=== PATIENT | female | born 1965 | race Caucasian/White ===

== ENCOUNTER → 2019-12-02 | Outpatient (CLI) | payer OTHER ==
[~2019-12-02] MED LIST: LEVO125T5 PO; LIOT5TAB4 PO
--- NOTE | 2019-12-02 11:11 | PDOC2 ---
INITIAL PAIN CONSULT DATE OF SERVICE: DOS: DATE: 12/02/19 TIME: 11:04 CHIEF COMPLAINT: Chief Complaint: Low back and bilateral lower extremity pain right greater than left HISTORY OF PRESENT ILLNESS: This is a 54-year-old female presents history of pain low back bilateral lower extremities right greater than left for about 1 year. Patient reports no specific injury or accident that she is aware of the pain is been getting worse over the past year in the low back and bilateral lower extremities. Patient which is sharp and throbbing shooting with numbness and radiating pain in the lower extremities to the feet posterior gluteus posterior thighs posterior calf and into the foot and ankle especially on the right side but present bilaterally. Patient points radiating aching and cramping in the low back as well patient reports is worse with walking standing changing positions, better with sitting but does awaken her from sleep several times at night patient reports it does not affect her bowel bladder control significantly does not affect ability to walk for most times but does cause fatigability in bilateral lower extremities specially on the right side with ambulating more than about 10 minutes. Patient tried chiropractic treatment which helped for about a month or so but to come right back start ibuprofen as well as naproxen both of which decrease the pain by about 20 to 25%. Patient partial disability of 0-10 10 in the worst is a 4 with family home responsibilities and occupation 6 with recreation to a social activity and social behavior and self-care activities. Patient have a MRI scan lumbar spine showing degenerative changes specially at the L5-S1 level with L5-S1 neuroforaminal stenosis greater on the right than the left. Reports no overt loss of motor function but significant fatigability with ambulation although she not use any assistive devices to ambulate. PAST MEDICAL HISTORY: PMH: Cigarette smoking, dizziness, otherwise patient has been in fairly good health. PREVIOUS SURGERIES: Past Surgical Hx: Thyroidectomy 2019, left shoulder surgery 2013, 1988, vein stripping 1991. CURRENT MEDICATIONS: Current Meds: Active Scripts Medications Dose Route/Sig Max Daily Dose Days Date Category Liothyronine Sodium 5 Mcg Tablet 10 Mcg PO BID 12/02/19 Reported Levothyroxine Sodium 125 Mcg Tablet 1 Tab PO DAILY 12/02/19 Reported ALLERGIES; Allergies: Coded Allergies: Sulfa (Sulfonamide Antibiotics) (Verified Allergy, Severe, 12/02/19) "severe" joint pain FAMILY HISTORY: Family Hx: Significant for breast cancer, multiple myeloma, hypotension, myofibrosis, glaucoma. SOCIAL HISTORY: Social Hx: Patient does not drink alcohol does not smoke any illegal illicit or recreational drugs smokes cigarettes about 1 pack a day for the past 30 years is lives locally in [facility] and has 1 child living at home. Patient works as a realtor REVIEW OF SYSTEMS: ROS: Patient review of systems a positive those items mentioned in his present illness all systems reviewed otherwise negative complete formal document on patient's chart. PHYSICAL EXAM: VS: Blood pressure 110/78 pulse 78 respirations 18 temperature 97.7 F 6'1" weight is 2 three 2 pound PE: PHYSICAL EXAMINATION: GENERAL: The patient is awake, alert, oriented, appropriate, very pleasant demeanor HEENT: Shows normocephalic, atraumatic. Extraocular movements are intact and symmetrical. Oral cavity: Mucous membranes moist and pink. Dentition is intact. NECK: Shows anterior throat supple without palpable lymphadenopathy noted. Swallow reflex symmetrical. CHEST: Shows normal on inspection. Breath sounds are clear bilaterally, no rales rhonchi or wheezes auscultated. HEART: Shows S1, S2 clear. No murmurs auscultated. ABDOMEN: Soft, nontender, nondistended. No palpable organomegaly is noted. No rebound or guarding demonstrated. BACK: Shows spine grossly in the midline. Normal-appearing cervical lordotic curvature. There is slightly increased thoracic kyphosis, some minor flattening of the lumbar lordotic curvature. Lumbar paraspinous muscles show symmetrical on inspection, on palpation shows some moderate tenderness diffusely throughout the upper, middle and lower distribution of the paraspinous muscles bilaterally but without specific trigger points, without radiation of pain. The patient has good rotational motion of the lumbar spine, both laterally as well as extension and flexion without significant difficulty. No tenderness over the spinous processes, sacrum or sacroiliac regions. EXTREMITIES: Lower extremities show deep tendon reflexes 2+ in the patellar and tendo calcaneus tendons. Motor exam is 4 on a scale of 5 with right dorsiflexi on, extension, quadriceps and hamstring flexion and 5/5 on the left. Peripheral pulses are 1+ posterior tibial. No peripheral edema is noted bilaterally. Lower extremities are warm and dry to touch, equal in color and appearance. Straight leg raise noted to be positive on the right about 45 degrees, left side is negative. Gaenslen's and Jose Carlos's maneuvers are negative as well. The patient is able to stand, stand on her toes without significant difficulty or loss of balance, walks with a normal-appearing gait not using any assistive devices to ambulate. SKIN: Shows warm and dry, good turgor. No edema. No sores, rashes or bruising throughout. IMPRESSION: Impression: This is a 54-year-old female with approximate 1 year history increasing pain low back bilateral lower extremities right greater than left in a radicular fashion. MRI scan lumbar spine as noted Cigarette smoking Plan: Options were discussed with the patient including conservative management physical therapies interventional techniques and she like to pursue interventional techniques. We discussed a lumbar epidural steroid injection using description as well as anatomical model to describe the procedure patient will await preauthorization with her insurance provider with clinical radiculopathy in bilateral lower extremities right greater than left and L4-5 dermatomal distribution and we will plan on translaminar approach L4-5 lumbar epidural steroid injection upon approval. In the meantime patient will continue with stretching strength exercises walking as tolerated. CHEMA WILLIAMSON MD Dec 02, 2019 11:11
== END | disposition home or self-care (01) ==
LOC: PNCL 10:26
PROVIDERS: ATTEND Anesthesiology
DX: M48.07 Spinal stenosis, lumbosacral region (principal); M54.16 Radiculopathy, lumbar region; Z87.891 Personal history of nicotine dependence; Z98.890 Other specified postprocedural states; Z88.2 Allergy status to sulfonamides; Z82.49 Family history of ischemic heart disease and other diseases of the circulatory system; Z80.3 Family history of malignant neoplasm of breast
CPT/HCPCS: G0463

== ENCOUNTER → 2019-12-10 | Outpatient (CLI) | payer OTHER ==
[~2019-12-10] MED LIST changes: +ERGO500027 PO
== END | disposition home or self-care (01) ==
LOC: LAB 11:11
PROVIDERS: ATTEND Orthopaedic Surgery
DX: Z01.818 Encounter for other preprocedural examination (principal); Z11.59 Encounter for screening for other viral diseases; M19.011 Primary osteoarthritis, right shoulder; M75.121 Complete rotator cuff tear or rupture of right shoulder, not specified as traumatic
CPT/HCPCS: U0003-CS

== ENCOUNTER → 2019-12-10 | Outpatient (CLI) | payer OTHER ==
[~2019-12-10] MED LIST changes: -ERGO500027 PO; +IOHEXOL 180 MG/ML 10 ML VIAL. ONE; +methylPREDNISolone ACETATE 40 MG/ML VIAL. ONE; +methylPREDNISolone ACETATE 80 MG/ML VIAL. ONE
--- NOTE | 2019-12-10 10:47 | PDOC ---
Progress Note - Pain Clinic Date of Service: DOS: DATE: 12/10/19 TIME: 10:44 Diagnosis: Dx: Lumbar radiculopathy with lumbar degenerative disc disease History or Present Illness: HPI: 54-year-old female returns follow-up status post initial evaluation preauthorization for lumbar epidural steroid injection. Patient is obtained that now would like to proceed, complains still of the low back and the right leg and left lower extremity pain rated a 2 on a scale of 10 is worse over the past week 2 on average to displaces it to today. Patient was aching and tight tingling and radiating the low back and right leg posterior gluteus posterior lateral thigh lateral anterior thigh and medial thigh on the right side greater than left. Patient reports no new motor or sensory deficits no new bowel or bladder incontinence or other complaints. Patient which is waking her from sleep about 5 to 6 hours better with sitting or laying down. Physical Exam: VS: Blood pressure is 113/75 pulse 67 respirations 18 temperature 98.1 F weight is 237 pounds PE: PHYSICAL EXAMINATION: GENERAL: The patient is awake, alert, oriented, appropriate, very pleasant demeanor HEENT: Shows normocephalic, atraumatic. Extraocular movements are intact and symmetrical. NECK: Shows anterior throat supple without palpable lymphadenopathy noted. Swallow reflex symmetrical. CHEST: Shows normal on inspection. Breath sounds are clear bilaterally, no rales rhonchi or wheezes auscultated. HEART: Shows S1, S2 clear. No murmurs auscultated. ABDOMEN: Soft, nontender, nondistended. No palpable organomegaly is noted. No rebound or guarding demonstrated. BACK: Shows spine grossly in the midline. Normal-appearing cervical lordotic curvature. There is slightly increased thoracic kyphosis, some minor flattening of the lumbar lordotic curvature. Lumbar paraspinous muscles show symmetrical on inspection, on palpation shows some moderate tenderness diffusely throughout the upper, middle and lower distribution of the paraspinous muscles bilaterally without trigger points, without radiation of pain. The patient has good rotational motion of the lumbar spine, both laterally as well as extension and flexion without significant difficulty. No tenderness over the spinous proces ses, sacrum or sacroiliac regions. EXTREMITIES: Lower extremities show deep tendon reflexes 2+ in the patellar and tendo calcaneus tendons. Motor exam is 4 on a scale of 5 with right dorsiflexion, extension, quadriceps and hamstring flexion and 5/5 on the left. Peripheral pulses are [] posterior tibial. [] peripheral edema is noted bilaterally. Lower extremities are warm and dry to touch, equal in color and appearance. SKIN: Shows warm and dry, good turgor. No edema. No sores, rashes or bruising throughout. Procedure: Procedure: Options are discussed with the patient. Patient will chart was use her current medication regimen updated current review of systems updated today as well. We will proceed with a lumbar epidural to injection today with fluoroscopic guidance. Risks are discussed including but not limited to bleeding infection possibility of epidural hematoma subsequent neurological compromise dural puncture headache spinal cord and or nerve damage side effects of steroid medication and poor results chronic pain control. Patient understands wished to proceed patient return to clinic in approximately 2 weeks for follow-up with counselors return appointment at the level and side effects to be aware of. Medication Injected: Med Injected: Procedure is lumbar epidural steroid injection under local anesthetic using sterile prep and drape at the L4-5 level using C-arm fluoroscopic guidance in both AP and lateral views medications injected is 120mg Depo-Medrol + 10 mL preservative-free normal saline and 2 mL Isovue for contrast- condition at discharge is stable patient tolerated procedure well had no complications. Condition at Discharge: Condition at Discharge: Condition at discharge is stable patient tolerated procedure well had no complications. CHEMA WILLIAMSON MD Dec 10, 2019 10:47
== END | disposition home or self-care (01) ==
LOC: PNCL 09:59
PROVIDERS: ATTEND Anesthesiology
DX: M51.16 Intervertebral disc disorders with radiculopathy, lumbar region (principal); Z88.2 Allergy status to sulfonamides; Z79.899 Other long term (current) drug therapy; Z80.3 Family history of malignant neoplasm of breast
CPT/HCPCS: 62323; J1030; J1040; Q9965

== ENCOUNTER 2019-12-15 06:11 | Day surgery (SDC) | payer OTHER ==
[~2019-12-15] VITALS: Ht 185.4 cm; Wt 101.2 kg
[~2019-12-15 06:11] MED LIST changes: +ERGO500027 PO; -IOHEXOL 180 MG/ML 10 ML VIAL. ONE; -methylPREDNISolone ACETATE 40 MG/ML VIAL. ONE; -methylPREDNISolone ACETATE 80 MG/ML VIAL. ONE
[2019-12-15] MEDS ORDERED: EPINEPHrine VIAL 30 MG/30 ML VIAL ONE (06:41)
[2019-12-15] MEDS ORDERED: LIDOCAINE 1% PF 2 ML VIAL. ONE (06:55)
[2019-12-15] MEDS ORDERED: BUPIVACAINE MPF 0.5% 30 ML VIAL. ONE (06:55)
[2019-12-15] MEDS ORDERED: BUPIVACAINE-EPI 0.5%-1:200000 MPF 30 ML VIAL. ONE (06:55)
[2019-12-15] MEDS ORDERED: ONDANSETRON PF 4 MG/2 ML VIAL. IV PRN (07:00)
[2019-12-15] MEDS ORDERED: HYDROmorphone 2 MG/ML VIAL IV PRN (07:00)
[2019-12-15] MEDS ORDERED: IV RINGERS,LACTATED 1000ML 1,000 ML IV SCH (07:00)
[2019-12-15] MEDS ORDERED: MORPHINE SULFATE 2 MG/ML VIAL. IV PRN (07:00)
[2019-12-15] MEDS ORDERED: PROCHLORPERAZINE 10 MG/2 ML VIAL. IV PRN (07:00)
[2019-12-15] MEDS ORDERED: MIDAZOLAM HCL/PF 2 MG/2 ML VIAL. ONE (07:02)
[2019-12-15] MEDS ORDERED: fentaNYL PF VIAL 100 MCG/2 ML VIAL ONE (07:02)
[2019-12-15] MEDS ORDERED: LIDOCAINE 2% PF 5 ML VIAL. ONE (07:06)
[2019-12-15] MEDS ORDERED: PROPOFOL 10 MG/ML (20ML) VIAL. IV ONE (07:06)
[2019-12-15] MEDS ORDERED: DEXAMETHASONE SOD PHOS 4 MG/ML VIAL ONE (07:06)
[2019-12-15] MEDS ORDERED: ONDANSETRON PF 4 MG/2 ML VIAL. ONE (07:06)
[2019-12-15] MEDS ORDERED: ROCURONIUM 50 MG/5 ML VIAL. ONE (07:07)
[2019-12-15] MEDS ORDERED: SUCCINYLCHOLINE 200 MG/10 ML VIAL. ONE (07:07)
[2019-12-15] MEDS ORDERED: ePHEDrine PF IN SALINE 50 MG/10 ML SYRINGE. IV ONE (08:10)
[2019-12-15] MEDS ORDERED: OXYC1TAB19 PO (08:11)
[2019-12-15] MEDS ORDERED: oxyCODONE/APAP 7.5/325 1 TAB TABLET PO ONE (08:15)
[2019-12-15] MEDS ORDERED: NEOSTIGMINE METHYLSULFATE 5 MG/5 ML SYRINGE. ONE (08:45)
[2019-12-15] MEDS ORDERED: SEVOFLURANE 61 TO 120 MINUTES. IH ONE (08:46)
[2019-12-15] MEDS ORDERED: GLYCOPYRROLATE 1 MG/5 ML VIAL. ONE (08:46)
[2019-12-15] MEDS ORDERED: ceFAZolin 2GM PREMIX 2 GM/50 ML BAG IV ONE (09:00)
[2019-12-15] MEDS ORDERED: SEVOFLURANE > 120 MINUTES. IH ONE (10:02)
--- NOTE | 2019-12-15 10:11 | DISCH ---
DISCHARGE INSTRUCTIONS Condition on Discharge Condition on Discharge: Stable Activity After Discharge Activity Instructions for Disc: Other, see below (May perform fine motor ac tivity with right elbow at side, wear immobilizer for sleeping) Exercise Instruction after Dis: Exercise per therapy (Passive motion and pendulum exercises only, do not actively lift arm away from the side) Weight Bearing Status after Di: Non weight bearing Diet after Discharge Diet after Discharge: Regular Wound Incision Care Wound/Incision Care: Change dressing (Remove dressing after 2 days may then shower report any redness or drainage) Community/Resources/Services Services at Discharge: PT EVALUATE & TREAT (Prescription provided) Contacting the after DC Call your doctor for: Concerns you may have Follow-Up Follow up with: Dr. Garcia 1 week MARIAM GARCIA MD Dec 15, 2019 10:11
--- NOTE | 2019-12-15 10:18 | PDOC4 ---
Operative Note Operative Note Date of surgery: 12/15/2019 Preoperative diagnosis: Right shoulder rotator cuff tear, acromioclavicular joint degenerative joint disease and pain Postoperative diagnosis: Same with full-thickness distal supraspinatus tear and degenerative acromioclavicular joint with large anterior acromial spur Operative procedure: Right shoulder arthroscopy arthroscopic rotator cuff repair distal clavicle excision and subacromial decompression Surgeon: Radha [employer] Repairer: Paul Gandhi nurse practitioner Anesthesia: General plus scalene block Estimated blood loss: 10 cc Complications: None Operative indications: Please see my orthopedic clinic note for detailed operative indications and note that we had reviewed the structure and function of the rotator cuff the significance of the full-thickness tear that will not heal on its own and the risks benefits postoperative course of rotator cuff repair the restrictions and rationale for them the possibility of nonhealing continued pain weakness medical or other anesthetic complications among others and the necessity to deal with any other pathologic conditions at the same time including a planned distal clavicle excision. All her questions were answered she wishes to proceed with surgical evaluation and treatment. Operative text: Patient was identified procedure verified patient placed in the supine position on the operating table. After adequate amounts of general anesthesia plus a pre-existing scalene block were obtained she was placed decubitus right side up using the beanbag positioner and all bony prominences were well-padded. The right shoulder was prepped and draped in the standard sterile fashion and after timeout was performed patient procedure identified and verified the right shoulder was examined under anesthesia found to have full range of motion and no instability. A standard posterior portal was established an anterior portal established using spinal needle localization and the shoulder joint was systematically examined. Capsule labral structures were noted to be intact as was the biceps anchor and biceps was stable in the bicipital groove. Subscapularis insertion was normal as was the bare area of the humerus. She was found to have a retracted full-thickness tear of the distal supraspinatus. Subacromial space was entered and bursa was cleared for visualization. The ro tator cuff footprint was debrided back to stable bleeding tissue without decortication and a total of 2 composite TCP double loaded suture anchors were placed along the medial row placed in a simple fashion and anchored laterally with a Quatro link knotless anchor 4.5 mm laterally that restored the footprint with a watertight repair examined in all degrees of internal/external rotation. Subacromial decompression was then performed converting the large anterior acromial spur to a type I acromion using cutting block technique. Acromioclavicular joint was noted to be markedly arthritic and narrowed and distal clavicle was excised 1 cm to allow for a 12 mm joint space preserving the overlying joint capsule for stability. All bony fragments were removed with the arthroscopic shaver the joint was drained of arthroscopic fluid portals closed with nylon suture sterile dressings were placed she was placed in a immobilizer transferred to recovery room in stable condition having tolerated procedure well. Paul Gandhi nurse practitioner was present for the procedure assisted in the patient positioning prepping draping procedure closure and dressings MARIAM MICHAUD MD Dec 15, 2019 10:18
[2019-12-15 10:55] VITALS: BP 116/58
== END 2019-12-15 11:42 | disposition home or self-care (01) ==
LOC: SURG 06:11 → EDUNIT# 07:30 → SURG 11:42
PROVIDERS: ATTEND Orthopaedic Surgery
DX: M19.011 Primary osteoarthritis, right shoulder (principal); M75.101 Unspecified rotator cuff tear or rupture of right shoulder, not specified as traumatic; Z88.2 Allergy status to sulfonamides; Z88.8 Allergy status to other drugs, medicaments and biological substances; Z79.899 Other long term (current) drug therapy
CPT/HCPCS: 29824; 29827; A7015; C1713; J0171; J0330; J0690; J1100; J2250; J2405; J2704; J2710; J3010; J3490; J7120

== ENCOUNTER → 2020-02-03 | Outpatient (CLI) | payer OTHER ==
[~2020-02-03] MED LIST changes: +IOHEXOL 180 MG/ML 10 ML VIAL. ONE; +OXYC1TAB19 PO; +methylPREDNISolone ACETATE 40 MG/ML VIAL. ONE; +methylPREDNISolone ACETATE 80 MG/ML VIAL. ONE
--- NOTE | 2020-02-03 11:40 | PDOC ---
Progress Note - Pain Clinic Date of Service: DOS: DATE: 02/03/20 TIME: 11:36 Diagnosis: Dx: Lumbar radiculopathy with lumbar degenerative disc disease History or Present Illness: HPI: 54-year-old female returns follow-up status post lumbar epidural steroid injection x1. Patient reports approximately 1% improvement for the first 4 weeks now the pain returning in the low back right greater than left in the posterior gluteus posterior lateral thigh lateral anterior thigh and medial thighs bilaterally again worse on the right side. Patient reports initially doing much better with distance walking doing household activities work activities sleeping better back felt "looser" patient reports she still sleeping well at night generally not awakening her from sleep sleeping about 8 hours at a time. Patient describes the pain is radiating tingling in the low back and the right greater than left lower extremity aching sharp dull tight and shooting at times. Rates her pain over the past week is a 8 on scale 10 is worst 6 on average to its least and is a 6 today. Patient reports no new motor or sensory deficits no new bowel or bladder incontinence or other complaints Physical Exam: VS: Blood pressure is 109/66 pulse 72 respirations 16 temperature 97.9 F weight is 234 pounds PE: PHYSICAL EXAMINATION: GENERAL: The patient is awake, alert, oriented, appropriate, very pleasant demeanor HEENT: Shows normocephalic, atraumatic. Extraocular movements are intact and symmetrical. Oral cavity: Mucous membranes moist and pink. NECK: Shows anterior throat supple without palpable lymphadenopathy noted. Swallow reflex symmetrical. CHEST: Shows normal on inspection. Breath sounds are clear bilaterally. HEART: Shows S1, S2 clear. No murmurs auscultated. ABDOMEN: Soft, nontender, nondistended, obese. No palpable organomegaly is noted. No rebound or guarding demonstrated. BACK: Shows spine grossly in the midline. Normal-appearing cervical lordotic curvature. There is slightly increased thoracic kyphosis, some minor flattening of the lumbar lordotic curvature. Lumbar paraspinous muscles show symmetrical on inspection, on palpation shows some moderate tenderness diffusely throughout the upper, middle and lower distribution of the paraspinous muscles bilaterally, without specific trigger points, without radiation of pain. The patient has good rotational motion of the lumbar spine, both laterally as well as extension and flexion without significant difficulty. No tenderness over the spinous p rocesses, sacrum or sacroiliac regions. EXTREMITIES: Lower extremities show deep tendon reflexes 2+ in the patellar and tendo calcaneus tendons. Motor exam is 4 on a scale of 5 with right dorsiflexion, extension, quadriceps and hamstring flexion and 5/5 on the left. Peripheral pulses are 1+ posterior tibial. No peripheral edema is noted bilaterally. Lower extremities are warm and dry to touch, equal in color and appearance. SKIN: Shows warm and dry, good turgor. No edema. No sores, rashes or bruising throughout. Procedure: Procedure: Options were discussed with the patient. Patient's old chart was reviewed as her current medication regimen updated current review of systems updated today as well. We will proceed with a second in the series lumbar epidural steroid injection today with fluoroscopic guidance. Risks were discussed including but not limited to: Bleeding, infection, possibility of epidural hematoma and subsequent neurological compromise, dural puncture, headaches, spinal cord and/or nerve damage, side effects of steroid medication, and poor results regarding pain control. Patient understands wished to proceed. Patient will return to clinic in approximately 2 weeks for follow-up was counseled as return appointment activity level and side effects to be aware of. Medication Injected: Med Injected: Procedure is lumbar epidural steroid injection under local anesthetic using sterile prep and drape at the L4-5 level using C-arm fluoroscopic guidance in both AP and lateral views medications injected is 120 mg Depo-Medrol + 10 mL preservative-free normal saline and 2 mL contrast- condition at discharge is stable patient tolerated procedure well had no complications. Condition at Discharge: Condition at Discharge: Condition at discharge is stable patient tolerated the procedure well and had no complications. CHEMA WILLIAMSON MD Feb 03, 2020 11:40
== END ==
LOC: PNCL 10:57
PROVIDERS: ATTEND Anesthesiology
DX: M51.16 Intervertebral disc disorders with radiculopathy, lumbar region (principal); Z88.2 Allergy status to sulfonamides; Z88.8 Allergy status to other drugs, medicaments and biological substances; Z79.899 Other long term (current) drug therapy
CPT/HCPCS: 62323; J1030; J1040; Q9965